=== PATIENT | female | born 1975 | race Caucasian/White ===

== ENCOUNTER 2016-07-29 03:00 | Emergency (ER) | payer OTHER | END 2016-07-29 03:50 | disposition home or self-care (01) | LOC: ER 03:00 | DX: J02.9 Acute pharyngitis, unspecified (principal); R05 Cough; F17.210 Nicotine dependence, cigarettes, uncomplicated; Z79.899 Other long term (current) drug therapy | CPT/HCPCS: 87070; 87880; 99282 ==